=== PATIENT | female | born 1965 | race Hispanic/Latino ===

== ENCOUNTER 2018-02-12 21:24 | Emergency (ER) | payer OTHER ==
[2018-02-12] MEDS ORDERED: IBUPROFEN 400 MG TABLET ONE (21:59)
[2018-02-12] MEDS ORDERED: SULFAMETHOX-TMP DS 800/160 TAB ONE (21:59)
== END 2018-02-12 22:11 | disposition home or self-care (01) ==
LOC: EDH 21:24
DX: L02.411 Cutaneous abscess of right axilla (principal)

== ENCOUNTER 2022-07-20 14:46 | Emergency (ER) | payer SELFPAY ==
[~2022-07-20] VITALS: Ht 162.6 cm; Wt 59.0 kg
[2022-07-20 14:48] VITALS: BP 131/49
[2022-07-20] MEDS ORDERED: ACYCLOVIR 800 MG TABLET PO ONE (15:30)
[2022-07-20] MEDS ORDERED: IBUPROFEN 600 MG TABLET PO SCH (16:00)
[2022-07-20] MEDS ORDERED: IBUP-2070 PO (16:24)
[2022-07-20] MEDS ORDERED: ACYC-138 PO (16:24)
== END 2022-07-20 16:40 | disposition home or self-care (01) ==
LOC: EDH 14:46
DX: B02.9 Zoster without complications (principal); Z79.1 Long term (current) use of non-steroidal anti-inflammatories (NSAID)